=== PATIENT | male | born 1955 | race African-American/Black ===

== ENCOUNTER 2020-01-20 14:40 | Inpatient (IN) | payer MEDICAID, OTHER ==
[~2020-01-20] VITALS: Ht 175.3 cm; Wt 118.3 kg
[2020-01-20] MEDS ORDERED: CLON0.2T PO (15:27)
[2020-01-20] MEDS ORDERED: ATOR40TA28 PO (15:27)
[2020-01-20] MEDS ORDERED: HYDR-1475 PO (15:27)
[2020-01-20] MEDS ORDERED: ASPI-728 PO (15:27)
[2020-01-20] MEDS ORDERED: AMLO-257 PO (15:27)
[2020-01-20 15:53] LABS: AMPHET/METH SCREEN,URINE POSITIVE (NEGATIVE); BARBITURATE SCREEN, URINE NEGATIVE (NEGATIVE); BENZODIAZEPINES SCREEN,URINE NEGATIVE (NEGATIVE); CANNABINOID SCREEN,URINE POSITIVE (NEGATIVE); COCAINE SCREEN,URINE NEGATIVE (NEGATIVE); METHADONE SCREEN, URINE NEGATIVE (NEGATIVE); OPIATE SCREEN,URINE NEGATIVE (NEGATIVE)
[2020-01-20 16:01] LABS: PHENCYCLIDINE SCREEN,URINE NEGATIVE (NEGATIVE)
[2020-01-20 16:21] LABS: EOSINOPHILS % (AUTO) 0.6 % (1.0-6.0); HEMATOCRIT 42.1 % (41-53); HEMOGLOBIN 13.9 g/dL (13.5-17.5); LYMPHOCYTES # (AUTO) 1.2 K/uL (1.0-4.8); LYMPHOCYTES % (AUTO) 32.3 % (22.0-44.0); MEAN CORPUSCULAR HEMOGLOBIN 28.5 pg (26.0-34.0); MEAN CORPUSCULAR VOLUME 86 fL (80-100); MONOCYTES # (AUTO) 0.4 K/uL (0.1-1.0); MONOCYTES % (AUTO) 11.1 % (2.0-9.0); PLATELET COUNT (AUTO) 214 K/uL (150-450); RED BLOOD CELL COUNT(AUTO) 4.88 MIL/uL (4.50-5.90); RED CELL DISTRIBUTION WIDTH 14.3 % (11.5-14.5)
[2020-01-20 16:28] LABS: SALICYLATE 4.6 mg/dL (2.8-20.0)
[2020-01-20 16:29] LABS: ANION GAP 7 mmol/L (8-16); CALCIUM, TOTAL 9.7 mg/dL (8.8-10.5); CARBON DIOXIDE 28 mmol/L (22-29); CHLORIDE 98 mmol/L (98-107); CREATININE 1.44 mg/dL (0.60-1.30); GLOMERULAR FILTR. RATE CALC 60 mL/min (>60); GLUCOSE,RANDOM 85 mg/dL (70-110); SODIUM SERUM 133 mmol/L (136-145); UREA NITROGEN, BLOOD 12 mg/dL (7-18)
[2020-01-20 16:36] LABS: ALANINE AMINOTRANSFERASE 80 U/L (12-78); ALBUMIN 3.5 g/dL (3.4-5.0); ALKALINE PHOSPHATASE 79 U/L (46-116); ASPARTATE AMINOTRANSFERASE 50 U/L (15-37); BILIRUBIN,TOTAL 0.7 mg/dL (0.1-1.0); TOTAL PROTEIN, SERUM 7.9 g/dL (6.4-8.2)
[2020-01-20 16:40] LABS: ACETAMINOPHEN < 2 mcg/mL (10-30)
[2020-01-20] MEDS ORDERED: POTASSIUM CHLORIDE 20 MEQ ER TABLET PO ONE (17:00)
[2020-01-20 17:53] LABS: COVID AG,FIA SOURCE NASOPHARYNGEAL
[2020-01-20] MEDS ORDERED: HALOPERIDOL 5 MG TABLET PO PRN (18:30)
[2020-01-20] MEDS: CloNIDine HCL 0.2 MG TABLET PO ONE ×2 (19:09→19:22)
[2020-01-20 20:30] VITALS: BP 155/83
[2020-01-20] MEDS ORDERED: NICOTINE 14 MG/24 HOUR PATCH TD PRN (21:45)
[2020-01-20] MEDS ORDERED: INFLUENZA VIRUS VACCINE QVS 2020-21 (6MO+)/PF 60 MCG/0.5 ML SYRINGE IM ONE (22:00)
[2020-01-20] MEDS ORDERED: PNEUMOCOCCAL VACCINE POLYVALENT 0.5 ML VIAL [PPSV23] IM ONE (22:00)
[2020-01-21] MEDS ORDERED: NICOTINE 14 MG/24 HOUR PATCH TD PRN (07:45)
[2020-01-21] MEDS ORDERED: LOPERAMIDE HCL 2 MG CAPSULE PO PRN (07:45)
[2020-01-21] MEDS ORDERED: ACETAMINOPHEN 325 MG TABLET PO PRN (07:45)
[2020-01-21] MEDS ORDERED: PETROLATUM,WHITE 28 GM JELLY TP PRN (07:45)
[2020-01-21] MEDS ORDERED: MAG HYDROX/AL HYDROX/SIMETH ES 30 ML SUSPENSION UDCUP PO PRN (07:45)
[2020-01-21] MEDS ORDERED: ONDANSETRON HCL 4 MG TABLET PO PRN (07:45)
[2020-01-21] MEDS ORDERED: ALBUTEROL SULFATE HFA 90 MCG/PUFF 8 GM INHALER IH PRN (07:45)
[2020-01-21] MEDS ORDERED: MAGNESIUM HYDROXIDE SUSPENSION 30 ML UDCUP PO PRN (07:45)
[2020-01-21] MEDS ORDERED: CloNIDine HCL 0.1 MG TABLET PO PRN (07:45)
[2020-01-21] MEDS ORDERED: DOCUSATE SODIUM 100 MG CAPSULE PO PRN (07:45)
[2020-01-21] MEDS ORDERED: GuaiFENesin/D-METHORPHAN [SUGAR-FREE] 200-20MG/10 ML SYRUP UDCUP PO PRN (07:45)
[2020-01-21 08:00] VITALS: BP 144/98
[2020-01-21] MEDS: CloNIDine HCL 0.2 MG TABLET PO SCH ×2 (08:40→17:56)
[2020-01-21] MEDS: ASPIRIN 81 MG CHEWABLE TABLET PO SCH (08:40)
[2020-01-21] MEDS: ATORVASTATIN CALCIUM 40 MG TABLET PO SCH (08:41)
[2020-01-21] MEDS: LORazepam 2 MG TABLET PO PRN ×2 (08:43→17:56)
[2020-01-21] MEDS ORDERED: AmLODIPine BESYLATE 5 MG TABLET PO SCH (09:00)
[2020-01-21] MEDS ORDERED: HYDROCHLOROTHIAZIDE 25 MG TABLET PO SCH (09:00)
[2020-01-21 17:48] VITALS: BP 170/109
[2020-01-21 20:58] VITALS: BP 150/84
[2020-01-21] MEDS: ARIPiprazole 5 MG TABLET PO SCH (21:35)
[2020-01-22 08:15] VITALS: BP 153/86
[2020-01-22] MEDS: AmLODIPine BESYLATE 10 MG TABLET PO SCH (08:58)
[2020-01-22] MEDS: CloNIDine HCL 0.2 MG TABLET PO SCH ×2 (08:58→16:18)
[2020-01-22] MEDS: ASPIRIN 81 MG CHEWABLE TABLET PO SCH (08:58)
[2020-01-22] MEDS: ATORVASTATIN CALCIUM 40 MG TABLET PO SCH (08:59)
[2020-01-22] MEDS: CITALOPRAM HYDROBROMIDE 10 MG TABLET PO SCH (14:10)
[2020-01-22 16:00] VITALS: BP 156/85
[2020-01-22] MEDS: ARIPiprazole 5 MG TABLET PO SCH (20:58)
[2020-01-23 08:20] VITALS: BP 136/77
[2020-01-23] MEDS: CloNIDine HCL 0.2 MG TABLET PO SCH ×2 (09:23→16:36)
[2020-01-23] MEDS: ASPIRIN 81 MG CHEWABLE TABLET PO SCH (09:23)
[2020-01-23] MEDS: ATORVASTATIN CALCIUM 40 MG TABLET PO SCH (09:23)
[2020-01-23] MEDS: CITALOPRAM HYDROBROMIDE 10 MG TABLET PO SCH (09:23)
[2020-01-23] MEDS: AmLODIPine BESYLATE 10 MG TABLET PO SCH (09:23)
[2020-01-23 16:00] VITALS: BP 110/64
[2020-01-23] MEDS: ARIPiprazole 5 MG TABLET PO SCH (20:09)
[2020-01-24 08:00] VITALS: BP 172/97
[2020-01-24] MEDS: ATORVASTATIN CALCIUM 40 MG TABLET PO SCH (08:30)
[2020-01-24] MEDS: ASPIRIN 81 MG CHEWABLE TABLET PO SCH (08:30)
[2020-01-24] MEDS: CloNIDine HCL 0.2 MG TABLET PO SCH ×2 (08:30→16:56)
[2020-01-24] MEDS: CITALOPRAM HYDROBROMIDE 10 MG TABLET PO SCH (08:30)
[2020-01-24] MEDS: AmLODIPine BESYLATE 10 MG TABLET PO SCH (08:30)
[2020-01-24 16:33] VITALS: BP 145/76
[2020-01-24] MEDS: ARIPiprazole 5 MG TABLET PO SCH (20:24)
[2020-01-24 22:49] LABS: COVID AG,FIA SOURCE NASOPHARYNGEAL
[2020-01-25] MEDS: ASPIRIN 81 MG CHEWABLE TABLET PO SCH (09:03)
[2020-01-25] MEDS: ATORVASTATIN CALCIUM 40 MG TABLET PO SCH (09:03)
[2020-01-25] MEDS: AmLODIPine BESYLATE 10 MG TABLET PO SCH (09:03)
[2020-01-25] MEDS: CloNIDine HCL 0.2 MG TABLET PO SCH ×2 (09:03→16:53)
[2020-01-25] MEDS: CITALOPRAM HYDROBROMIDE 20 MG TABLET PO SCH (09:03)
[2020-01-25] MEDS: IBUPROFEN 400 MG TABLET PO PRN (09:06)
[2020-01-25 09:30] VITALS: BP 178/108
[2020-01-25 10:10] VITALS: BP 165/96
[2020-01-25 16:00] VITALS: BP 115/70
[2020-01-25] MEDS: ARIPiprazole 5 MG TABLET PO SCH (21:03)
[2020-01-26 08:00] VITALS: BP 136/70
[2020-01-26] MEDS: ATORVASTATIN CALCIUM 40 MG TABLET PO SCH (10:20)
[2020-01-26] MEDS: ASPIRIN 81 MG CHEWABLE TABLET PO SCH (10:20)
[2020-01-26] MEDS: CloNIDine HCL 0.2 MG TABLET PO SCH ×2 (10:20→17:08)
[2020-01-26] MEDS: CITALOPRAM HYDROBROMIDE 20 MG TABLET PO SCH (10:20)
[2020-01-26] MEDS: AmLODIPine BESYLATE 10 MG TABLET PO SCH (10:21)
[2020-01-26 16:15] VITALS: BP 145/72
[2020-01-26] MEDS: ARIPiprazole 5 MG TABLET PO SCH (20:39)
[2020-01-27 08:00] VITALS: BP 141/90
[2020-01-27] MEDS: ATORVASTATIN CALCIUM 40 MG TABLET PO SCH (10:30)
[2020-01-27] MEDS: ASPIRIN 81 MG CHEWABLE TABLET PO SCH (10:30)
[2020-01-27] MEDS: CloNIDine HCL 0.2 MG TABLET PO SCH ×2 (10:30→16:30)
[2020-01-27] MEDS: AmLODIPine BESYLATE 10 MG TABLET PO SCH (10:30)
[2020-01-27] MEDS: CITALOPRAM HYDROBROMIDE 20 MG TABLET PO SCH (10:30)
[2020-01-27 16:05] VITALS: BP 141/79
[2020-01-27] MEDS: ARIPiprazole 5 MG TABLET PO SCH (20:42)
[2020-01-27] MEDS: ZOLPIDEM TARTRATE 10 MG TABLET PO PRN (20:47)
[2020-01-28 08:00] VITALS: BP 157/98
[2020-01-28] MEDS: CITALOPRAM HYDROBROMIDE 20 MG TABLET PO SCH (10:08)
[2020-01-28] MEDS: ASPIRIN 81 MG CHEWABLE TABLET PO SCH (10:08)
[2020-01-28] MEDS: CloNIDine HCL 0.2 MG TABLET PO SCH ×2 (10:08→16:29)
[2020-01-28] MEDS: AmLODIPine BESYLATE 10 MG TABLET PO SCH (10:08)
[2020-01-28] MEDS: ATORVASTATIN CALCIUM 40 MG TABLET PO SCH (10:08)
[2020-01-28 18:09] VITALS: BP 121/69
[2020-01-28] MEDS: ARIPiprazole 5 MG TABLET PO SCH (20:10)
[2020-01-29 08:00] VITALS: BP 168/94
[2020-01-29] MEDS: ATORVASTATIN CALCIUM 40 MG TABLET PO SCH (09:20)
[2020-01-29] MEDS: AmLODIPine BESYLATE 10 MG TABLET PO SCH (09:20)
[2020-01-29] MEDS: ASPIRIN 81 MG CHEWABLE TABLET PO SCH (09:20)
[2020-01-29] MEDS: CITALOPRAM HYDROBROMIDE 20 MG TABLET PO SCH (09:20)
[2020-01-29] MEDS: CloNIDine HCL 0.2 MG TABLET PO SCH ×2 (09:20→17:11)
[2020-01-29 17:21] VITALS: BP 123/57
[2020-01-29] MEDS: ARIPiprazole 5 MG TABLET PO SCH (20:16)
[2020-01-30] MEDS: ATORVASTATIN CALCIUM 40 MG TABLET PO SCH (09:04)
[2020-01-30] MEDS: ASPIRIN 81 MG CHEWABLE TABLET PO SCH (09:04)
[2020-01-30] MEDS: CloNIDine HCL 0.2 MG TABLET PO SCH ×2 (09:05→16:54)
[2020-01-30] MEDS: CITALOPRAM HYDROBROMIDE 20 MG TABLET PO SCH (09:05)
[2020-01-30] MEDS: AmLODIPine BESYLATE 10 MG TABLET PO SCH (09:05)
[2020-01-30 09:36] VITALS: BP 158/103
[2020-01-30 16:00] VITALS: BP 124/58
[2020-01-30] MEDS: ARIPiprazole 5 MG TABLET PO SCH (20:13)
[2020-01-31 08:30] VITALS: BP 156/102
[2020-01-31] MEDS: CloNIDine HCL 0.2 MG TABLET PO SCH ×2 (08:53→16:48)
[2020-01-31] MEDS: AmLODIPine BESYLATE 10 MG TABLET PO SCH (08:53)
[2020-01-31] MEDS: CITALOPRAM HYDROBROMIDE 20 MG TABLET PO SCH (08:53)
[2020-01-31] MEDS: ASPIRIN 81 MG CHEWABLE TABLET PO SCH (08:53)
[2020-01-31] MEDS: ATORVASTATIN CALCIUM 40 MG TABLET PO SCH (08:54)
[2020-01-31 16:00] VITALS: BP 124/60
[2020-01-31] MEDS: ARIPiprazole 5 MG TABLET PO SCH (20:16)
[2020-02-01] MEDS: CloNIDine HCL 0.2 MG TABLET PO SCH ×2 (08:35→16:53)
[2020-02-01] MEDS: CITALOPRAM HYDROBROMIDE 20 MG TABLET PO SCH (08:36)
[2020-02-01] MEDS: ASPIRIN 81 MG CHEWABLE TABLET PO SCH (08:37)
[2020-02-01] MEDS: AmLODIPine BESYLATE 10 MG TABLET PO SCH (08:37)
[2020-02-01] MEDS: ATORVASTATIN CALCIUM 40 MG TABLET PO SCH (08:37)
[2020-02-01 13:30] VITALS: BP 164/126
[2020-02-01 16:59] VITALS: BP 135/87
[2020-02-01] MEDS: ARIPiprazole 5 MG TABLET PO SCH (20:40)
[2020-02-02] MEDS: AmLODIPine BESYLATE 10 MG TABLET PO SCH (08:36)
[2020-02-02] MEDS: CITALOPRAM HYDROBROMIDE 20 MG TABLET PO SCH (08:36)
[2020-02-02] MEDS: ASPIRIN 81 MG CHEWABLE TABLET PO SCH (08:36)
[2020-02-02] MEDS: CloNIDine HCL 0.2 MG TABLET PO SCH ×2 (08:37→16:32)
[2020-02-02] MEDS: ATORVASTATIN CALCIUM 40 MG TABLET PO SCH (08:37)
[2020-02-02 10:48] VITALS: BP 133/75
[2020-02-02 17:12] VITALS: BP 152/79
[2020-02-02] MEDS: ARIPiprazole 5 MG TABLET PO SCH (20:23)
[2020-02-03] MEDS: CloNIDine HCL 0.2 MG TABLET PO SCH ×2 (10:41→16:30)
[2020-02-03] MEDS: CITALOPRAM HYDROBROMIDE 20 MG TABLET PO SCH (10:42)
[2020-02-03] MEDS: ASPIRIN 81 MG CHEWABLE TABLET PO SCH (10:44)
[2020-02-03] MEDS: ATORVASTATIN CALCIUM 40 MG TABLET PO SCH (10:45)
[2020-02-03] MEDS: AmLODIPine BESYLATE 10 MG TABLET PO SCH (10:46)
[2020-02-03 10:50] VITALS: BP 141/71
[2020-02-03 16:27] VITALS: BP 134/80
[2020-02-03] MEDS: ZOLPIDEM TARTRATE 10 MG TABLET PO PRN (20:42)
[2020-02-03] MEDS: ARIPiprazole 5 MG TABLET PO SCH (20:43)
[2020-02-04 08:00] VITALS: BP 120/66
[2020-02-04] MEDS: CITALOPRAM HYDROBROMIDE 20 MG TABLET PO SCH (09:47)
[2020-02-04] MEDS: ATORVASTATIN CALCIUM 40 MG TABLET PO SCH (09:48)
[2020-02-04] MEDS: AmLODIPine BESYLATE 10 MG TABLET PO SCH (09:48)
[2020-02-04] MEDS: ASPIRIN 81 MG CHEWABLE TABLET PO SCH (09:48)
[2020-02-04] MEDS: CloNIDine HCL 0.2 MG TABLET PO SCH ×2 (09:48→17:17)
[2020-02-04 17:00] VITALS: BP 132/65
[2020-02-04] MEDS: ZOLPIDEM TARTRATE 10 MG TABLET PO PRN (20:56)
[2020-02-04] MEDS: ARIPiprazole 5 MG TABLET PO SCH (20:57)
[2020-02-05] MEDS: CloNIDine HCL 0.2 MG TABLET PO SCH ×2 (09:07→16:57)
[2020-02-05] MEDS: AmLODIPine BESYLATE 10 MG TABLET PO SCH (09:07)
[2020-02-05] MEDS: ATORVASTATIN CALCIUM 40 MG TABLET PO SCH (09:07)
[2020-02-05] MEDS: ASPIRIN 81 MG CHEWABLE TABLET PO SCH (09:07)
[2020-02-05] MEDS: CITALOPRAM HYDROBROMIDE 20 MG TABLET PO SCH (09:07)
[2020-02-05 16:06] VITALS: BP 126/82
[2020-02-05] MEDS: ARIPiprazole 5 MG TABLET PO SCH (20:47)
[2020-02-05] MEDS: ZOLPIDEM TARTRATE 10 MG TABLET PO PRN (20:55)
[2020-02-06] MEDS: CITALOPRAM HYDROBROMIDE 20 MG TABLET PO SCH (08:48)
[2020-02-06] MEDS: ATORVASTATIN CALCIUM 40 MG TABLET PO SCH (08:48)
[2020-02-06] MEDS: AmLODIPine BESYLATE 10 MG TABLET PO SCH (08:48)
[2020-02-06] MEDS: ASPIRIN 81 MG CHEWABLE TABLET PO SCH (08:48)
[2020-02-06] MEDS: CloNIDine HCL 0.2 MG TABLET PO SCH ×2 (08:49→16:03)
[2020-02-06 09:41] VITALS: BP 136/74
[2020-02-06 16:32] VITALS: BP 116/76
[2020-02-06] MEDS: ARIPiprazole 5 MG TABLET PO SCH (20:11)
[2020-02-06] MEDS: ZOLPIDEM TARTRATE 10 MG TABLET PO PRN (20:14)
[2020-02-07 08:00] VITALS: BP 150/80
[2020-02-07] MEDS: ATORVASTATIN CALCIUM 40 MG TABLET PO SCH (08:32)
[2020-02-07] MEDS: AmLODIPine BESYLATE 10 MG TABLET PO SCH (08:33)
[2020-02-07] MEDS: CloNIDine HCL 0.2 MG TABLET PO SCH ×2 (08:34→16:19)
[2020-02-07] MEDS: ASPIRIN 81 MG CHEWABLE TABLET PO SCH (08:34)
[2020-02-07] MEDS: CITALOPRAM HYDROBROMIDE 20 MG TABLET PO SCH (08:34)
[2020-02-07 10:17] VITALS: BP 150/67
[2020-02-07 11:17] VITALS: BP 108/73
[2020-02-07 16:17] VITALS: BP 117/60
[2020-02-07] MEDS: ARIPiprazole 5 MG TABLET PO SCH (20:33)
[2020-02-08] MEDS ORDERED: ARIP5TAB8 PO (04:30)
[2020-02-08] MEDS ORDERED: CITA-144 PO (04:31)
[2020-02-08 08:00] VITALS: BP 139/97
[2020-02-08] MEDS: CloNIDine HCL 0.2 MG TABLET PO SCH ×2 (09:16→16:41)
[2020-02-08] MEDS: ATORVASTATIN CALCIUM 40 MG TABLET PO SCH (09:16)
[2020-02-08] MEDS: AmLODIPine BESYLATE 10 MG TABLET PO SCH (09:16)
[2020-02-08] MEDS: ASPIRIN 81 MG CHEWABLE TABLET PO SCH (09:16)
[2020-02-08] MEDS: CITALOPRAM HYDROBROMIDE 20 MG TABLET PO SCH (09:16)
[2020-02-08 16:05] VITALS: BP 149/78
[2020-02-08] MEDS: ARIPiprazole 5 MG TABLET PO SCH (20:16)
[2020-02-08] MEDS: IBUPROFEN 400 MG TABLET PO PRN (20:18)
[2020-02-09 08:32] VITALS: BP 138/90
[2020-02-09] MEDS: ATORVASTATIN CALCIUM 40 MG TABLET PO SCH (09:23)
[2020-02-09] MEDS: AmLODIPine BESYLATE 10 MG TABLET PO SCH (09:23)
[2020-02-09] MEDS: CloNIDine HCL 0.2 MG TABLET PO SCH (09:23)
[2020-02-09] MEDS: ASPIRIN 81 MG CHEWABLE TABLET PO SCH (09:23)
[2020-02-09] MEDS: CITALOPRAM HYDROBROMIDE 20 MG TABLET PO SCH (09:23)
[2020-02-09] MEDS: IBUPROFEN 400 MG TABLET PO PRN (12:06)
== END 2020-02-09 12:30 | disposition home or self-care (01) | DRG 750 ==
LOC: EMS 14:40 → 3EI 18:22
PROVIDERS: ADMIT Psychiatry & Neurology Child & Adolescent Psychiatry; ATTEND Psychiatry & Neurology Child & Adolescent Psychiatry
DX: F20.0 Paranoid schizophrenia (principal); Z59.0 Homelessness; F41.9 Anxiety disorder, unspecified; Z91.5 Personal history of self-harm; I10 Essential (primary) hypertension; E78.5 Hyperlipidemia, unspecified; E87.6 Hypokalemia; E87.1 Hypo-osmolality and hyponatremia; D72.819 Decreased white blood cell count, unspecified; K75.9 Inflammatory liver disease, unspecified; E78.00 Pure hypercholesterolemia, unspecified; F32.9 Major depressive disorder, single episode, unspecified; F17.200 Nicotine dependence, unspecified, uncomplicated; F15.10 Other stimulant abuse, uncomplicated; F12.10 Cannabis abuse, uncomplicated; F10.10 Alcohol abuse, uncomplicated; Y90.0 Blood alcohol level of less than 20 mg/100 ml; R45.851 Suicidal ideations; Z20.828 Contact with and (suspected) exposure to other viral communicable diseases
CPT/HCPCS: 84132; 87426; G0480; G0481